=== PATIENT | male | born 1970 | race Caucasian/White ===

== ENCOUNTER 2019-09-26 13:45 | Emergency (ER) | payer BC, SELFPAY ==
[2019-09-26] VITALS (8 sets, daily range): BP systolic 107–148; BP diastolic 82–94; PULSE 60–86; RESP 18–22; TEMP 36.6–37.1; O2SAT 94–98
--- NOTE | ~2019-09-26 | XR_ITS ---
EXAMINATION: XR chest 2V DATE: 09/26/2019 17:21 INDICATION: Dizziness. TECHNIQUE: Frontal and lateral views of the chest were obtained. COMPARISON: Chest 2 views 03/09/2019 FINDINGS: There is mild atelectasis at the lung bases. No pleural effusion or pneumothorax. The heart size is normal. IMPRESSION: 1. Mild atelectasis at the lung bases. Reviewed, dictated and finalized at location A.
--- NOTE | ~2019-09-26 | CT_ITS ---
EXAMINATION: CT brain wo con DATE: 09/26/2019 17:14 INDICATION: Dizziness. TECHNIQUE: Computed tomography (CT) of the head was performed without intravenous contrast. The mA wa s adjusted according to patient size. Iterative reconstruction technique was employed. The dose-lengt h product was 681.00 mGy-cm. COMPARISON: Head CT 08/03/2015 FINDINGS: There is no intracranial hemorrhage, acute infarction, or abnormal intracranial mass lesion . The ventricles are normal in size. There is mild mucosal thickening in the paranasal sinuses. The o rbits are normal. The mastoid air cells are normal. IMPRESSION: 1. Normal brain. Reviewed, dictated and finalized at location A. IMPRESSION: 1. Normal brain.
[2019-09-26 14:24] LABS: Basophils Absolute Auto 0.1 K/mm3 (0.0-0.1); Basophils Percent Auto 0.6 % (0.2-1.2); Eosinophils Absolute Auto 0.1 K/mm3 (0-0.3); Hematocrit 49.5 % (42.0-52.0); Hemoglobin 16.7 g/dL (14.0-18.0); Immature Granulocyte Absolute 0.04 K/mm3 (0.00-0.031); Immature Granulocyte Percent A 0.5 % (0-0.5); Lymphocytes Absolute Auto 2.15 K/mm3 (0.9-3.2); Lymphocytes Percent Auto 26.5 % (18.3-44.2); Mean Corpuscular HGB Conc 33.7 g/dl (32-36); Mean Corpuscular Hemoglobin 28.5 pg (26-34); Mean Corpuscular Volume 84.6 fl (80-100); Mean Platelet Volume 11.4 fl (7.4-10.4); Monocytes Absolute Auto 0.3 K/mm3 (0.1-0.6); Monocytes Percent Auto 3.9 % (2.6-8.5); Neutrophils Absolute Auto 5.5 K/mm3 (1.3-6.7); Neutrophils Percent Auto 67.5 % (45.5-73.1); Platelet Count Result 278 k/mm3 (150-375); Red Blood Count 5.85 M/mm3 (4.6-6.20); Red Cell Distribution Width 12.7 % (11.5-14.5); White Blood Count 8.1 K/mm3 (4.5-10.0)
[2019-09-26 14:37] LABS: Blood Urea Nitrogen 21 mg/dL (9-20); Calcium 9.2 mg/dL (8.4-10.2); Carbon Dioxide 20 mmol/L (22-30); Chloride 104 mmol/L (98-107); Estimated CRCL calculation 98 ml/min; Estimated Glomerular Filt Rate > 60; Glucose 170 mg/dL (75-110); Potassium 3.8 mmol/L (3.4-5.0); Sodium 135 mmol/L (137-145)
--- NOTE | 2019-09-26 16:58 | ECG_ITS ---
Measurements Intervals Taylor Rate: 65 P: 45 MO: 183 QRS: -13 QRSD: 90 T: -26 QT: 381 QTc: 398 Interpretive Statements SINUS RHYTHM NONSPECIFIC T-WAVE ABNORMALITY- INF/LAT LEADS BORDERLINE ECG Electronically Signed On 09-27-2019 7:45:45 CDT by Kannan Callahan D.O.
--- NOTE | 2019-09-26 17:04 | ED.DIZZY ---
HPI - Dizziness General Chief Complaint: Dizziness Stated Complaint: vertigo Time Seen by Provider: 09/26/19 16:45 Source: patient Mode of arrival: wheelchair Limitations: no limitations History of Present Illness HPI Narrative: This is a 49 year old male that presents to the ER for vertigo since this morning. Reports sensation of the room spinning. Reports nausea and vomiting. Also reports tinnitus. Reports history of similar episodes. Reports he was diagnosed with M?ni?re's disease. Denies fever, vision changes, numbness, or weakness. Related Data Allergies Allergy/AdvReac Type Severity Reaction Status Date / Time No Known Allergies Allergy Verified 08/03/15 09:26 Review of Systems Review of Systems: Narrative: CONSTITUTIONAL: Denies fever EYES: Denies visual changes GASTROINTESTINAL: Reports nausea, vomiting NEUROLOGIC: Denies headache, numbness, or weakness. All systems reviewed & are unremarkable except as noted in HPI and below PMFSH Past Medical History Medical History (Updated 09/26/19 @ 21:33 by Kathy Sandra PA-C) Anxiety Depression Kidney stones Meniere disease Pneumonia Seizure UTI (urinary tract infection) Vertigo Surgical History Surgical History (Updated 03/09/19 @ 17:02 by Kailyn Brownlee) No significant past surgical history Family History Family History (Updated 11/05/13 @ 07:13 by DOCTOR UNKNOWN) Father Hypertension Family history of elevated blood lipids Family history of coronary artery disease Social History Social History Smoking status: Never smoker Alcohol intake: never Gender identity (if verbalized by the patient): Male Exam Narrative: Exam Narrative: GENERAL: Well-appearing, well-nourished, and in no acute distress. HEAD: Normocephalic, atraumatic. EYES: PERRLA and EOMI. ENT: Nares clear, no rhinorrhea or epistaxis. Mucous membranes moist. Oropharynx without tonsillar hypertrophy exudate or other lesions. Bilateral TMs pearly [place] non-bulging NECK: Supple. No adenopathy or masses. CHEST: Clear to auscultation. No respiratory distress. No wheezes rales or rhonchi HEART: Regular rate and rhythm. No murmur heard. Normal peripheral pulses. EXTREMITIES: Normal range of motion. No edema. Strength equal in bilateral upper and lower extremities (5/5) SKIN: Warm, dry, no rash. NEURO: No focal deficits. Alert and oriented x3. Cranial nerves II through XII grossly intact. Normal [id number]. Normal [id number] PSYCH: Normal mood and affect Course Vital Signs Vital signs: Vital Signs Temperature 98.7 F 09/26/19 14:01 Pulse Rate 86 09/26/19 14:01 Respiratory Rate 22 H 09/26/19 14:01 Blood Pressure 107/86 09/26/19 14:01 Pulse Oximetry 98 09/26/19 14:01 Temperature 98.1 F 09/26/19 19:48 Pulse Rate 69 09/26/19 19:48 Respiratory Rate 18 09/26/19 19:48 Blood Pressure 128/85 09/26/19 19:48 Pulse Oximetry 94 09/26/19 19:48 MDM - Dizziness MDM Narrative Medical decision making narrative: Patient presents the emergency department for episode of vertigo today. Reports history of this and has been diagnosed with M?ni?re's disease. Patient's vitals are normal. He is afebrile and nontoxic-appearing. Patient is neurologically intact. CBC without acute findings. Metabolic panel with mild elevation in blood glucose. Patient's hemoglobin A1c is elevated to 6.3. CT scan of the brain is normal. Chest x-ray is without acute findings. EKG without concerning changes. Patient hydrated and given meclizine with relief. Able to ambulate in the ED without difficulty. Patient was updated on case findings. He is to follow-up with primary care doctor. He was given warnings to return to the ER Lab Data Attestation: I reviewed the patient's lab results. Result diagrams: 09/26/19 14:10 09/26/19 14:10 Labs: Lab Results 09/26/19 09/26/19 09/26/19 Range/Un
[2019-09-26] MEDS: SODIUM CHLORIDE 0.9% IV 1,000 ML 999 ML IV CONT (17:57)
[2019-09-26] MEDS: ONDANSETRON INJ 4 MG/2 ML VIAL IV PUSH (17:58)
[2019-09-26] MEDS: MECLIZINE HCL 25 MG TABLET PO (18:06)
[2019-09-26] MEDS: KETOROLAC 30 MG/ML VIAL (*BKC) IV PUSH (19:43)
[2019-09-26 20:05] LABS: Hemoglobin A1C 6.3 % (<5.7)
[2019-09-26] MEDS: diphenhydrAMINE HCl INJ 50 MG/ML VIAL (20:45)
--- NOTE | 2019-09-26 21:33 | PC.NURSE ---
pt ambulated up and down hart with no issues. pt abdi well.
== END 2019-09-26 22:07 | disposition home or self-care (01) ==
PROVIDERS: Emergency Medicine; Physician Assistant; Emergency Provider Emergency Medicine; PCP Family Medicine
DX: R42 Dizziness and giddiness (principal); R73.03 Prediabetes; H81.09 Meniere's disease, unspecified ear; Z87.442 Personal history of urinary calculi; Z87.440 Personal history of urinary (tract) infections; R94.31 Abnormal electrocardiogram [ECG] [EKG]; R91.8 Other nonspecific abnormal finding of lung field
CPT/HCPCS: 36415; 70450; 71046; 80048; 83036; 85025; 93005; 96361; 96365; 96375; 99284; A9270; J0131; J1200; J1885; J2405; J7030

== ENCOUNTER 2021-02-16 19:26 | Emergency (ER) | payer BC, SELFPAY ==
[2021-02-16 19:51] VITALS: BP 139/85; PULSE 65; RESP 20; TEMP 36.9; O2SAT 100
--- NOTE | 2021-02-16 20:28 | PC.NURSE ---
Pt to the desk and states that she wants to take her home. Pt encouraged to stay to receive care but still wanting to leave. Pt A&Ox4 and upright in wheelchair.
== END 2021-02-17 02:36 | disposition left against medical advice (07) ==
PROVIDERS: PCP Family Medicine
DX: Z53.21 Procedure and treatment not carried out due to patient leaving prior to being seen by health care provider (principal)
CPT/HCPCS: 99199